=== PATIENT | male | born 1990 | race Hispanic/Latino ===

== ENCOUNTER 2017-05-22 17:20 | Emergency (ER) | payer SELFPAY ==
[~2017-05-22] VITALS: Ht 162.6 cm; Wt 75.0 kg
[2017-05-22] MEDS ORDERED: CHILDRENS100 MG/52 PO (18:54)
[2017-05-22] MEDS ORDERED: PERCOCET 5/325M1 TAB PO (18:54)
[2017-05-22] MEDS ORDERED: FLEXERIL PO (18:54)
[2017-05-22 19:05] VITALS: BP 129/79
== END 2017-05-22 19:05 | disposition home or self-care (01) | DRG 914 ==
LOC: ED 17:20
DX: S09.8XXA Other specified injuries of head, initial encounter (principal); Y04.0XXA Assault by unarmed brawl or fight, initial encounter